=== PATIENT | female | born 1950 | race Caucasian/White ===

== ENCOUNTER 2016-08-03 18:50 | Emergency (ER) | payer BC, MEDICAID, OTHER ==
[~2016-08-03] VITALS: Ht 162.6 cm; Wt 79.5 kg
[~2016-08-03 18:50] MED LIST: ESOM20CA; NO NEW MEDS
[2016-08-03 19:14] VITALS: Ht 162.6 cm; Wt 79.5 kg
[2016-08-03] MEDS ORDERED: HYDROCODONE/APAP (5/325) TAB PO ONE (23:30)
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
--- NOTE | 2016-08-04 00:54 | RADRPT ---
PROCEDURE: XR Cervical Spine. CLINICAL INDICATION: Trauma, pain. TECHNIQUE: Three views of the cervical spine. COMPARISON: None. FINDINGS: There is a normal cervical lordosis. No spondylolisthesis is seen. The vertebral body heights are maintained. No acute fracture or subluxation is identified. The prevertebral soft tissues are norm al. There is moderate degenerative disk disease at C4-C5 and C5-C6. The visualized aerodigestive t ract is normal. IMPRESSION: 1. No acute fracture or subluxation of the cervical spine. RPTAT: HTAR .Darwin Moreira MD, Date Time Electronically viewed and signed by .Darwin Moreira MD, on 08/04/2016 00:54 .R/
--- NOTE | 2016-08-04 00:55 | RADRPT ---
PROCEDURE: Lumbar Spine. CLINICAL INDICATION: Back pain. TECHNIQUE: Three views of the lumbar spine. COMPARISON: None available FINDINGS: There is mild levoscoliosis. The lumbar lordosis is preserved without spondylolisthesis. The verteb ral body heights are maintained. No acute fracture or subluxation is seen. There are no significant degenerative changes. IMPRESSION: 1. No acute fracture or subluxation. 2. Mild levoscoliosis. RPTAT: HTAR .Darwin Moreira MD, MD Date Time Electronically viewed and signed by .Darwin Moreira MD, on 08/04/2016 00:55 .R/
--- NOTE | 2016-08-04 00:55 | RADRPT ---
PROCEDURE: XR humerus. CLINICAL INDICATION: Pain. TECHNIQUE: AP and lateral views of the right humerus. COMPARISON: None available. FINDINGS: No fracture or dislocation is identified. The joint spaces are preserved. There is no significant soft tissue swelling. IMPRESSION: 1. No fracture or dislocation of the right humerus. RPTAT: HTAR .Darwin Moreira MD, MD Date Time Electronically viewed and signed by .Darwin Moreira MD, on 08/04/2016 00:55 .R/
--- NOTE | 2016-08-04 00:56 | RADRPT ---
PROCEDURE: XR Shoulder. CLINICAL INDICATION: Right shoulder pain. TECHNIQUE: 2 views of the right shoulder. COMPARISON: None available FINDINGS: There is no acute fracture or dislocation. The joint spaces are preserved. The coracoclavicular in terval is normal. The visualized right lung is clear. IMPRESSION: 1. No acute fracture or dislocation of the right shoulder. RPTAT: HTAR .Darwin Moreira MD, MD Date Time Electronically viewed and signed by .Darwin Moreira MD, on 08/04/2016 00:56 .R/
--- NOTE | 2016-08-04 00:57 | RADRPT ---
PROCEDURE: Portable chest x-ray. CLINICAL INDICATION: Injury, chest pain. TECHNIQUE: Portable AP view of the chest. COMPARISON: None. FINDINGS: There is minimal bibasilar atelectasis. No pulmonary edema or conolidation is identified. The card iac silhouette is magnified. No pleural effusion is seen. There is no pneumothorax. No fracture i s identified. IMPRESSION: 1. No radiographic evidence of traumatic chest injury. RPTAT: HTAR .Darwin Moreira MD, MD Date Time Electronically viewed and signed by .Darwin Moreira MD, MD on 08/04/2016 00:57 .R/
[2016-08-04] MEDS ORDERED: TRAM50TA2 PO (01:10)
[2016-08-04] MEDS ORDERED: NAPR-260 PO (01:10)
[2016-08-04] MEDS ORDERED: CYCL-319 PO (01:11)
[2016-08-04 01:39] VITALS: BP 148/86; PULSE 59; RESP 16
== END 2016-08-04 01:40 | disposition home or self-care (01) ==
LOC: FTE 18:50
DX: M79.604 Pain in right leg (principal); M54.5 Low back pain; M25.511 Pain in right shoulder; Z04.1 Encounter for examination and observation following transport accident
CPT/HCPCS: 71010; 72040; 72100; 73030; 73060; 93005; Z7610